=== PATIENT | female | born 1995 | race Caucasian/White ===

== ENCOUNTER 2017-09-24 12:21 | Emergency (ER) | payer MEDICAID ==
[2017-09-24] MEDS ORDERED: metroNIDAZOLE 500 MG Tab PO ONE (12:22)
[2017-09-24 12:45] LABS: CHLORIDE,CL 103 mEq/L (98-106); SODIUM,NA 138 mEq/L (136-145)
--- NOTE | 2017-09-24 13:11 | EDM.PDOC ---
ED HPI GENERAL MEDICAL PROBLEM - General Chief Complaint: [employer] Problem Stated Complaint: abdominal pain with Time Seen by Provider: 09/24/17 12:40 Source of Information: Reports: Patient History Limitations: Reports: No Limitations - History of Present Illness INITIAL COMMENTS - FREE TEXT/NARRATIVE: Patient presents today with abdominal pain. States had intense pain for an hour prior to coming here that was mostly upper quadrant, was constant. Has had heartburn but did not feel like that. Denies any urinary symptoms. No vaginal bleeding. Has had good movement. Onset: Today, Sudden Duration: Hour(s): (pain lasted about an hour in duration) Location: Reports: Abdomen Quality: Reports: Sharp Severity: Moderate Improves with: Reports: None Associated Symptoms: Denies: Cough, Fever/Chills, Loss of Appetite, Nausea/ Vomiting, Shortness of Breath, Syncope Upper Abdominal Pain Score (Numeric/FACES): 7 - Related Data Allergies Allergy/AdvReac Type Severity Reaction Status Date / Time No Known Allergies Allergy Verified 09/24/17 12:44 Home Meds: Home Meds Vits #93/Iron Fum/FA [ Formula Tablet] 1 tab PO DAILY 09/24/17 [History] metroNIDAZOLE [Flagyl] 500 mg PO Q12H #10 tab 09/24/17 [Rx] Past Medical History - Past Health History Medical/Surgical History: Denies 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 Denies: Decreased Appetite, Nausea, Vomiting : Reports: Other (denies vaginal bleeding) Musculoskeletal: Reports: No Symptoms Skin: Reports: No Symptoms Neurological: Reports: No Symptoms ED EXAM - Physical Exam Exam: See Below Exam Limited By: No Limitations General Appearance: Alert, WD/WN, No Apparent Distress Head: Normocephalic Neck: Normal Inspection, Supple, Non-Tender Respiratory/Chest: No Respiratory Distress, Lungs Clear, Normal Breath Sounds Cardiovascular: Normal Peripheral Pulses, Regular Rate, Rhythm, No Edema GI/Abdominal Exam: Normal Bowel Sounds, Soft Fundal Height In cm: 25 Heart Tones: Present Heart Tones per Min: 138 Movement: Active Extremities: Normal Inspection, Normal Capillary Refill Neurological: Alert, Oriented Skin Exam: Warm, Dry Course - Vital Signs Last Recorded V/S: Last Vital Signs Temp 97.7 F 09/24/17 12:21 Pulse 75 09/24/17 12:21 Resp 18 09/24/17 12:21 BP 119/66 09/24/17 12:21 Pulse Ox 100 09/24/17 12:21 - Orders/Labs/Meds Orders: Active Orders 24 hr Category Date Time Status UA W/MICROSCOPIC [URIN] Stat Lab 09/24/17 12:26 Ordered Labs: Laboratory Tests 09/24/17 09/24/17 09/24/17 Range/Units 12:25 12:25 12:26 WBC 18.0 H (5.0-10.0) 10^3/uL RBC 4.10 (4.00-5.50) 10^6/uL Hgb 12.6 (12.0-16.0) g/dL Hct 37.8 (37.0-47.0) % MCV 92.2 (82.0-94.0) fL MCH 30.7 (27.0-32.0) pg MCHC 33.3 (33.0-38.0) g/dL RDW Coeff of Calin 13.0 (11.0-15.0) % Plt Count 264 (150-400) 10^3/uL Add Manual Diff Yes Neutrophils % (Manual) 74 (35-85) % Band Neutrophils % 8 H (0-5) % Lymphocytes % (Manual) 16 L (21-55) % Monocytes % (Manual) 2 (2-12) % Sodium 138 (136-145) mEq/L Potassium 3.8 (3.5-5.0) mEq/L Chloride 103 (98-106) mEq/L Carbon Dioxide 25 (21-32) mmol/L BUN 7 (7-18) mg/dL Creatinine 0.5 L (0.6-1.0) mg/dL Est Cr Clr Drug Dosing 181.05 mL/min Estimated GFR (MDRD) > 60 (>=60) mL/min Glucose 87 (75-99) mg/dL Calcium 8.6 (8.4-10.1) mg/dL Total Bilirubin 0.3 (0.0-1.0) mg/dL AST 17 (15-37) U/L ALT 31 (12-78) U/L Alkaline Phosphatase 60 (46-116) U/L C-Reactive Protein < 0.2 L (0.2-0.8) mg/dL Total Protein 7.2 (6.4-8.2) g/dL Albumin 3.2 L (3.4-5.0) g/dL Urine Color Yellow (YELLOW) Urine Appearance Clear (CLEAR) Urine pH 8.5 H (4.5-8.0) Ur Specific [place] 1.020 (1.003-1.020) Urine Protein Negative (NEGATIVE) mg/dL Urine Glucose (UA) Negative (NEGATIVE) mg/dL Urine Ketones Negative (NEGATIVE) mg/dL Urine Occult Blood Negative (NEGATIVE) Urine Nitrite Negative (NEGATIVE) Urine Bilirubin Negative (NEGATIVE) Urine Urobilinogen 0.2 (0.2-1.0) EU/dL Ur Leukocyte Esterase Negative (NEGATIVE) Urine RBC Not seen (0-5) /HPF Urine WBC Not seen (0-5) /HPF Ur Epithelial Cells Moderate H (NOT SEEN) /HPF Urine Bacteria Occasional H (NOT SEEN) /HPF Urine Mucus Few H (NOT SEEN) /HPF Meds: Medications Discontinued Medications Generic Name Dose Route Start Last Admin Trade Name Titusq PRN Reason Stop Dose Admin Metronidazole 1 packet 09/24/17 13:07 Take Home: Metronidazole 500 Mg, 4 Tab Pack PO 09/24/17 13:08 ONETIME ONE - Re-Assessments/Exams Free Text/Narrative Re-Assessment/Exam: 09/24/17 13:23 Patient monitored on the heart monitor. Good accelerations. FHT 130s. No contractions noted. Departure - Departure Time of Disposition: 13:09 Disposition: Home, Self-Care 01 Condition: Good Clinical Impression: Bacterial vaginosis - Discharge Information *PRESCRIPTION DRUG MONITORING PROGRAM REVIEWED*: Not Applicable *COPY OF PRESCRIPTION DRUG MONITORING REPORT IN PATIENT ALEJANDRO: Not Applicable Referrals: ZeLorin pillai NP [Primary Care Provider] - Forms: ED Department Discharge Additional Instructions: 1. Rest 2. Push fluids 3. Flagyl 500 mg twice a day for 7 days 4. Follow up with Lorin if have ongoing concern. - My Orders Last 24 Hours: My Active Orders 09/24/17 12:26 UA W/MICROSCOPIC [URIN] Stat - Assessment/Plan Last 24 Hours: My Active Orders 09/24/17 12:26 UA W/MICROSCOPIC [URIN] Stat
[2017-09-24] MEDS: Take Home: metroNIDAZOLE 500 MG Tab, 4 Tab Pack PO ONE (13:20)
== END 2017-09-24 13:25 | disposition home or self-care (01) ==
LOC: CC.ED 12:21
DX: N76.0 Acute vaginitis (principal); Z87.891 Personal history of nicotine dependence
CPT/HCPCS: 36415; 80053; 81001; 85025; 86140; 99284; A9270-GY